=== PATIENT | female | born 1990 ===

== ENCOUNTER 2021-01-24 08:54 | Outpatient (CLI) | payer SELFPAY | END 2021-01-24 23:59 | disposition home or self-care (01) | LOC: RAD 08:54 | PROVIDERS: ATTEND Physician Assistant Medical | DX: O34.80 Maternal care for other abnormalities of pelvic organs, unspecified trimester (principal); O62.9 Abnormality of forces of labor, unspecified; N93.9 Abnormal uterine and vaginal bleeding, unspecified; N83.02 Follicular cyst of left ovary; N83.01 Follicular cyst of right ovary; Z3A.00 Weeks of gestation of pregnancy not specified | CPT/HCPCS: 76801 ==